=== PATIENT | female | born 1985 | race Caucasian/White ===

== ENCOUNTER 2019-02-01 12:27 | Emergency (ER) | payer BC ==
[~2019-02-01] VITALS: Ht 170.2 cm; Wt 63.5 kg
[2019-02-01 12:22] VITALS: BP 110/81
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
[2019-02-01] MEDS ORDERED: Acetaminophen 500mg (ES) tab ORAL ONE ×2 (12:30→12:36)
--- NOTE | 2019-02-01 12:50 | NUR ---
ED Nurse Note: pt medicated and tolerated well. pt went to ct with tech
--- NOTE | 2019-02-01 13:00 | NUR ---
ED Nurse Note: pt came back from ct with tech
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
[2019-02-01] MEDS ORDERED: ROBAXIN500 MG PO (14:11)
[2019-02-01] MEDS ORDERED: NAPROXEN500 M2 ORAL (14:11)
[2019-02-01 14:19] VITALS: BP 110/81
--- NOTE | 2019-02-01 14:19 | NUR ---
ER DISCHARGE NOTE: Patient is cleared to be discharged per ERMD, pt is aox4, on room air, with stable vital signs. pt was given dc and prescription instructions, pt was able to verbalize understanding, pt id band removed without complications. pt is able to ambulate with steady gait. pt took all belongings.
--- NOTE | 2019-02-02 10:35 | Diagnostic Imaging Report ---
Indication: Headache Technique: Contiguous 5 mm thick transaxial imaging of the head obtained in a Siem[employer] Sensation [address] scanner. Soft tissue and bone windows generated. Automatic Exposure Control was utilized. Total Dose length Product (DLP): [address] Dose Index Volume (CTDIvol): 70.38 mGy Comparison: none Findings: The size and configuration of the cortical sulci, basal cisterns, and ventricles are within normal limits for age. There is no mass effect, midline shift, or edema identified. There is no evidence of acute hemorrhage or abnormal intra-axial or extra-axial fluid collections. The bones and soft tissues are unremarkable. Impression: No mass effect, edema or acute bleed. [facility] has communicated the preliminary results to the Emergency Department. Their findings are largely concordant with this report. The CT scanner at [facility] is accredited by the [employer] and the scans are performed using dose optimization techniques as appropriate to a performed exam including Automatic Exposure control.
== END 2019-02-01 14:19 | disposition home or self-care (01) ==
LOC: EDBD 12:27 → EMR 13:08
DX: S00.93XA Contusion of unspecified part of head, initial encounter (principal); S16.1XXA Strain of muscle, fascia and tendon at neck level, initial encounter; V43.52XA Car driver injured in collision with other type car in traffic accident, initial encounter; Y92.410 Unspecified street and highway as the place of occurrence of the external cause
CPT/HCPCS: 36415; 70450; 80307; 81025; 99284; G0480; 80329